=== PATIENT | male | born 1980 | race Caucasian/White ===

== ENCOUNTER 2020-02-16 09:40 | Emergency (ER) | payer MEDICAID, OTHER ==
[~2020-02-16] VITALS: Ht 177.8 cm; Wt 79.5 kg
[2020-02-16] MEDS ORDERED: METH4TAB81 PO (10:49)
[2020-02-16] MEDS ORDERED: triamcinolone acetonide 40mg/ml inj IM ONE (10:50)
[2020-02-16 11:03] VITALS: BP 126/88
== END 2020-02-16 11:04 | disposition home or self-care (01) ==
LOC: ER 09:41
DX: L23.7 Allergic contact dermatitis due to plants, except food (principal); Z79.899 Other long term (current) drug therapy
CPT/HCPCS: 96372; 99283; J3301